=== PATIENT | female | born 1965 | race Caucasian/White ===

== ENCOUNTER 2022-06-30 07:22 | Inpatient (IN) | payer MEDICAID, OTHER ==
[~2022-06-30] VITALS: Ht 170.2 cm; Wt 72.9 kg
[~2022-06-30 07:22] MED LIST: LEVO50TA53; ZOLP10TA
[2022-06-30 08:04] LABS: Basophils # (auto) 0.1 10 ^3/uL (0-0.2); Basophils % (auto) 1.4 % (0.0-2.0); Eosinophils # (auto) 0.1 10 ^3/uL (0-0.8); Eosinophils % (auto) 1.8 % (0.0-7.0); Hematocrit 31.8 % (36.0-46.0); Hemoglobin 10.3 g/dL (12.2-16.2); Lymphocytes # (auto) 1.5 10 ^3/uL (0.4-5.4); Lymphocytes % (auto) 23.3 % (10.0-50.0); Mean Corpuscular Hgb Conc. 32.5 g/dL (32.0-36.0); Mean Corpuscular Volume 92.2 fL (80.0-100.0); Monocytes # (auto) 0.4 10 ^3/uL (0-1.3); Monocytes % (auto) 6.6 % (0.0-12.0); Neutrophils # (auto) 4.3 10 ^3/uL (1.6-8.6); Neutrophils % (auto) 66.9 % (37.0-80.0); Red Blood Cells 3.45 10^6/uL (4.0-5.20); Red Cell Distribution Width 15.7 % (11.8-14.3); White Blood Cell 6.4 10^3/uL (4.4-10.8)
[2022-06-30 08:51] LABS: Alanine Aminotransferase 13 U/L (13-56); Albumin 3.8 g/dL (3.4-5.0); Alkaline Phosphatase 60 U/L (45-117); Anion Gap 7 (5-15); Aspartate Aminotransferase 26 U/L (15-37); Bilirubin, Total 0.5 mg/dL (0.2-1.0); Blood Urea Nitrogen 12 mg/dL (7-18); Calcium 8.6 mg/dL (8.5-10.1); Carbon Dioxide 23 mmol/L (21-32); Chloride 109 mmol/L (98-107); GFR African American 53 mL/min; GFR Non-African American 44 mL/min; Glucose 91 mg/dL (74-106); Potassium 4.2 mmol/L (3.5-5.1); Sodium 139 mmol/L (136-145)
[2022-06-30] MEDS ORDERED: NITROGLYCERIN 0.4 MG SL TAB SL PRN (11:30)
[2022-06-30] MEDS ORDERED: MORPHINE SULFATE INJ 2 MG/ml SYRG IV PRN (11:30)
[2022-06-30] MEDS ORDERED: DOCUSATE SOD 100 MG CAP PO PRN (11:30)
[2022-06-30] MEDS ORDERED: ACETAMINOPHEN 325 MG TAB PO PRN (11:30)
[2022-06-30] MEDS ORDERED: SODIUM CHLORIDE 0.9% 1,000 ML IV ONE (11:30)
[2022-06-30] MEDS ORDERED: GASTROGRAFIN 30 ML SOL ONE (12:13)
[2022-06-30] MEDS: SODIUM CHLOR 0.9% PF (SALINE LOCK) 10ML VIAL/SYR IV SCH ×2 (14:14→21:15)
[2022-06-30] MEDS ORDERED: IOHEXOL 300 MG/ML 100ML BOTTLE IJ ONE ×2 (14:29→14:35)
[2022-06-30] MEDS: HYDROmorphone HCL 2 MG/ML VL/or syr IV PRN (14:33)
[2022-06-30] MEDS: ONDANSETRON HCL 4 MG/2 ML VIAL IV PRN (14:35)
[2022-06-30 17:35] VITALS: BP 79/49
[2022-06-30] MEDS ORDERED: SODIUM CHLORIDE 0.9% 500 ML IV ONE (18:15)
[2022-06-30] MEDS ORDERED: POLYETHYLENE GLYCOL 17 GM PWDR PO ONE (18:15)
[2022-06-30] MEDS ORDERED: ONDANSETRON HCL 4 MG/2 ML VIAL IV ONE (18:15)
[2022-06-30 18:43] VITALS: BP 97/63
[2022-06-30 18:54] VITALS: BP 99/67
[2022-06-30 23:00] VITALS: BP 96/68
[2022-07-01 06:18] VITALS: BP 98/63
[2022-07-01] MEDS: SODIUM CHLOR 0.9% PF (SALINE LOCK) 10ML VIAL/SYR IV SCH ×3 (06:21→22:22)
[2022-07-01 09:00] VITALS: BP 104/58
[2022-07-01] MEDS: SODIUM CHLORIDE 0.9% 1,000 ML IV SCH ×2 (10:43→18:31)
[2022-07-01] MEDS: PANTOPRAZOLE 40 MG/10 ML VIAL INJ IV SCH ×3 (10:47→22:21)
[2022-07-01 11:01] LABS: Basophils # (auto) 0.1 10 ^3/uL (0-0.2); Basophils % (auto) 0.8 % (0.0-2.0); Eosinophils # (auto) 0.1 10 ^3/uL (0-0.8); Eosinophils % (auto) 1.2 % (0.0-7.0); Hemoglobin 9.2 g/dL (12.2-16.2); Lymphocytes # (auto) 1.2 10 ^3/uL (0.4-5.4); Lymphocytes % (auto) 15.7 % (10.0-50.0); Mean Corpuscular Hemoglobin 30.5 pg (28.0-32.0); Mean Corpuscular Hgb Conc. 32.8 g/dL (32.0-36.0); Mean Corpuscular Volume 92.9 fL (80.0-100.0); Monocytes # (auto) 0.4 10 ^3/uL (0-1.3); Monocytes % (auto) 5.7 % (0.0-12.0); Neutrophils # (auto) 5.9 10 ^3/uL (1.6-8.6); Neutrophils % (auto) 76.6 % (37.0-80.0); Red Blood Cells 3.01 10^6/uL (4.0-5.20); Red Cell Distribution Width 15.8 % (11.8-14.3); White Blood Cell 7.7 10^3/uL (4.4-10.8)
[2022-07-01 11:22] LABS: Albumin 3.2 g/dL (3.4-5.0); Calcium 7.7 mg/dL (8.5-10.1); Potassium 3.8 mmol/L (3.5-5.1)
[2022-07-01 11:26] LABS: BUN/Creatinine Ratio 9.3; Bilirubin, Total 0.4 mg/dL (0.2-1.0); Total Protein 6.2 g/dL (6.4-8.2)
[2022-07-01 12:22] LABS: Alcohol, Urine < 3.0 mg/dL (0-10); Amphetamine Screen, Urine NEGATIVE (NEGATIVE); Barbiturate Scree,Urine NEGATIVE (NEGATIVE); Benzodiazephine Screen, Urine NEGATIVE (NEGATIVE); Cannabinoid Screen, Urine NEGATIVE (NEGATIVE); Cocaine Screen, Urine NEGATIVE (NEGATIVE); Opiate Scree,Urine NEGATIVE (NEGATIVE); Phencyclidine Screen, Urine NEGATIVE (NEGATIVE)
[2022-07-01 12:23] LABS: Creatinine, Urine 222 mg/dL (30.0-125.0); Sodium Urine 49 mmol/L (40-220)
[2022-07-01 13:00] VITALS: BP 95/60
[2022-07-01 17:00] VITALS: BP 93/62
[2022-07-01 22:00] VITALS: BP 101/65
[2022-07-01] MEDS ORDERED: PANTOPRAZOLE 40 MG/10 ML VIAL INJ IV SCH (22:00)
[2022-07-02] VITALS (7 sets, daily range): BP systolic 91–115; BP diastolic 59–84
[2022-07-02] MEDS: SODIUM CHLORIDE 0.9% 1,000 ML IV SCH ×4 (04:12→20:03)
[2022-07-02 06:21] LABS: Potassium 3.8 mmol/L (3.5-5.1)
[2022-07-02 06:24] LABS: Basophils # (auto) 0.1 10 ^3/uL (0-0.2); Eosinophils # (auto) 0.1 10 ^3/uL (0-0.8); Hematocrit 27.9 % (36.0-46.0); Hemoglobin 9.3 g/dL (12.2-16.2); Lymphocytes # (auto) 1.2 10 ^3/uL (0.4-5.4); Lymphocytes % (auto) 17.4 % (10.0-50.0); Mean Corpuscular Hemoglobin 30.7 pg (28.0-32.0); Mean Corpuscular Hgb Conc. 33.2 g/dL (32.0-36.0); Mean Corpuscular Volume 92.6 fL (80.0-100.0); Monocytes # (auto) 0.4 10 ^3/uL (0-1.3); Monocytes % (auto) 6.2 % (0.0-12.0); Neutrophils # (auto) 5.2 10 ^3/uL (1.6-8.6); Neutrophils % (auto) 73.4 % (37.0-80.0); Red Blood Cells 3.01 10^6/uL (4.0-5.20); Red Cell Distribution Width 15.8 % (11.8-14.3); White Blood Cell 7.1 10^3/uL (4.4-10.8)
[2022-07-02 06:32] LABS: Albumin 3.2 g/dL (3.4-5.0); BUN/Creatinine Ratio 8.6; Bilirubin, Total 0.4 mg/dL (0.2-1.0); Calcium 7.4 mg/dL (8.5-10.1); Total Protein 6.2 g/dL (6.4-8.2)
[2022-07-02] MEDS: SODIUM CHLOR 0.9% PF (SALINE LOCK) 10ML VIAL/SYR IV SCH ×3 (06:45→22:33)
[2022-07-02] MEDS: PANTOPRAZOLE 40 MG/10 ML VIAL INJ IV SCH ×4 (10:00→22:32)
[2022-07-02 11:59] LABS: INR 1.18 (0.9-1.15)
[2022-07-02] MEDS: ONDANSETRON HCL 4 MG/2 ML VIAL IV PRN (12:50)
[2022-07-02] MEDS: HYDROmorphone HCL 2 MG/ML VL/or syr IV PRN ×2 (12:51→19:49)
[2022-07-03] VITALS (27 sets, daily range): BP systolic 87–119; BP diastolic 53–86
[2022-07-03 01:31] LABS: INR 1.28 (0.9-1.15); Partial Thromboplastin Time 39.6 sec (24.6-33.4)
[2022-07-03] MEDS: SODIUM CHLORIDE 0.9% 1,000 ML IV SCH ×3 (03:19→22:43)
[2022-07-03] MEDS: HYDROmorphone HCL 2 MG/ML VL/or syr IV PRN ×2 (04:22→09:24)
[2022-07-03] MEDS: SODIUM CHLOR 0.9% PF (SALINE LOCK) 10ML VIAL/SYR IV SCH ×3 (06:00→22:43)
[2022-07-03 06:15] LABS: Basophils # (auto) 0.1 10 ^3/uL (0-0.2); Basophils % (auto) 0.9 % (0.0-2.0); Eosinophils # (auto) 0.1 10 ^3/uL (0-0.8); Eosinophils % (auto) 1.8 % (0.0-7.0); Hematocrit 29.1 % (36.0-46.0); Hemoglobin 9.6 g/dL (12.2-16.2); Lymphocytes % (auto) 16.5 % (10.0-50.0); Mean Corpuscular Hemoglobin 30.8 pg (28.0-32.0); Mean Corpuscular Volume 93.4 fL (80.0-100.0); Monocytes # (auto) 0.5 10 ^3/uL (0-1.3); Monocytes % (auto) 7.5 % (0.0-12.0); Neutrophils # (auto) 4.5 10 ^3/uL (1.6-8.6); Neutrophils % (auto) 73.3 % (37.0-80.0); Red Blood Cells 3.11 10^6/uL (4.0-5.20); Red Cell Distribution Width 16.3 % (11.8-14.3); White Blood Cell 6.2 10^3/uL (4.4-10.8)
[2022-07-03 07:48] LABS: Blood Urea Nitrogen 9 mg/dL (7-18); Glucose 75 mg/dL (74-106)
[2022-07-03 07:49] LABS: Alanine Aminotransferase 10 U/L (13-56); Alkaline Phosphatase 57 U/L (45-117); Aspartate Aminotransferase 24 U/L (15-37); BUN/Creatinine Ratio 7.4; GFR African American 59 mL/min; GFR Non-African American 49 mL/min
[2022-07-03 07:50] LABS: Bilirubin, Total 0.5 mg/dL (0.2-1.0); Calcium 7.7 mg/dL (8.5-10.1)
[2022-07-03 07:51] LABS: Albumin 3.4 g/dL (3.4-5.0); Total Protein 6.6 g/dL (6.4-8.2)
[2022-07-03 08:47] LABS: Carbon Dioxide 20 mmol/L (21-32)
[2022-07-03 08:49] LABS: Anion Gap 8 (5-15); Chloride 113 mmol/L (98-107); Sodium 141 mmol/L (136-145)
[2022-07-03] MEDS: PANTOPRAZOLE 40 MG/10 ML VIAL INJ IV SCH ×4 (09:26→22:43)
[2022-07-03] MEDS ORDERED: ALBUMIN 25% 100 ML IV ONE (11:00)
[2022-07-03 11:18] LABS: Hepatitis B Surface Antibody Negative (Negative)
[2022-07-03 11:52] LABS: Hepatitis A Total Antibody Negative (Negative)
[2022-07-03 13:00] LABS: Hepatitis C Antibody Negative (Negative)
[2022-07-03] MEDS: LEVOTHYROXINE SODIUM 100 MCG/5 ML INJ IV SCH (13:26)
[2022-07-03 13:37] LABS: Hepatitis A Ab IgM Negative; Hepatitis B Core IgM Negative
[2022-07-03 13:39] LABS: Hepatitis C Antibody Negative (Negative)
[2022-07-04] VITALS (11 sets, daily range): BP systolic 82–155; BP diastolic 53–77
[2022-07-04] MEDS: SODIUM CHLORIDE 0.9% 1,000 ML IV SCH ×4 (04:54→20:00)
[2022-07-04 05:22] LABS: Basophils # (auto) 0.1 10 ^3/uL (0-0.2); Basophils % (auto) 0.8 % (0.0-2.0); Eosinophils # (auto) 0.1 10 ^3/uL (0-0.8); Hematocrit 28.1 % (36.0-46.0); Hemoglobin 9.4 g/dL (12.2-16.2); Lymphocytes # (auto) 1.3 10 ^3/uL (0.4-5.4); Lymphocytes % (auto) 20.3 % (10.0-50.0); Mean Corpuscular Hemoglobin 31.1 pg (28.0-32.0); Mean Corpuscular Hgb Conc. 33.6 g/dL (32.0-36.0); Mean Corpuscular Volume 92.5 fL (80.0-100.0); Monocytes # (auto) 0.5 10 ^3/uL (0-1.3); Monocytes % (auto) 8.4 % (0.0-12.0); Neutrophils # (auto) 4.4 10 ^3/uL (1.6-8.6); Neutrophils % (auto) 68.5 % (37.0-80.0); Red Blood Cells 3.04 10^6/uL (4.0-5.20); Red Cell Distribution Width 15.9 % (11.8-14.3); White Blood Cell 6.4 10^3/uL (4.4-10.8)
[2022-07-04 05:39] LABS: Albumin 2.6 g/dL (3.4-5.0); Calcium 7.1 mg/dL (8.5-10.1); Potassium 3.8 mmol/L (3.5-5.1)
[2022-07-04 05:42] LABS: BUN/Creatinine Ratio 7.5
[2022-07-04 05:44] LABS: Bilirubin, Total 0.2 mg/dL (0.2-1.0)
[2022-07-04] MEDS: SODIUM CHLOR 0.9% PF (SALINE LOCK) 10ML VIAL/SYR IV SCH ×3 (06:01→22:00)
[2022-07-04 07:43] LABS: Urine Bacteria NONE SEEN /hpf (None Seen); Urine Blood Negative /uL (Negative); Urine Mucus FEW (None Seen); Urine Specific Gravity 1.018 (1.001-1.035); Urine WBC 2 /hpf (0 - 5)
[2022-07-04] MEDS ORDERED: ANGIOMAX 250 MG VIAL IV ONE (09:27)
[2022-07-04] MEDS ORDERED: IOHEXOL 350 MG/ML 100ML IJ ONE (09:28)
[2022-07-04] MEDS ORDERED: MIDAZOLAM HCL 2MG/2ML 2ml VIAL (1mg/ml) ONE (09:28)
[2022-07-04] MEDS ORDERED: SODIUM CHL 0.9% 0 ML ONE (09:28)
[2022-07-04] MEDS ORDERED: LIDOCAINE 2%HCL (LOCAL ANESTH.) INJ 10ml MDV ONE (09:28)
[2022-07-04] MEDS ORDERED: fentaNYL CITRATE 100 MCG/2 ML VL ONE (09:28)
[2022-07-04] MEDS: PANTOPRAZOLE 40 MG/10 ML VIAL INJ IV SCH ×4 (11:07→21:27)
[2022-07-04] MEDS: LEVOTHYROXINE SODIUM 100 MCG/5 ML INJ IV SCH (11:32)
[2022-07-04] MEDS: HYDROcodone-ACET 5/325MG TAB PO PRN ×2 (13:11→18:21)
[2022-07-05] MEDS: SODIUM CHLORIDE 0.9% 1,000 ML IV SCH ×2 (04:46→18:13)
[2022-07-05 05:00] VITALS: BP 98/63
[2022-07-05] MEDS: SODIUM CHLOR 0.9% PF (SALINE LOCK) 10ML VIAL/SYR IV SCH ×3 (06:00→22:17)
[2022-07-05] MEDS: HYDROcodone-ACET 5/325MG TAB PO PRN ×3 (08:24→18:37)
[2022-07-05 09:12] VITALS: BP 98/74
[2022-07-05] MEDS: LEVOTHYROXINE SODIUM 100 MCG/5 ML INJ IV SCH (10:02)
[2022-07-05] MEDS: ALBUMIN 25% 100 ML IV SCH ×2 (11:19→17:41)
[2022-07-05 13:00] VITALS: BP 85/61
[2022-07-05] MEDS ORDERED: ALBUMIN 25% 100 ML IV ONE (15:45)
[2022-07-05 17:00] VITALS: BP 135/59
[2022-07-05] MEDS ORDERED: LOSARTAN POTASSIUM 25 MG TAB PO ONE (20:00)
[2022-07-05 22:00] VITALS: BP 89/53
[2022-07-06] MEDS: ALBUMIN 25% 100 ML IV SCH ×3 (01:17→14:03)
[2022-07-06 05:00] VITALS: BP 92/65
[2022-07-06] MEDS: SODIUM CHLOR 0.9% PF (SALINE LOCK) 10ML VIAL/SYR IV SCH ×3 (06:05→22:55)
[2022-07-06] MEDS: LEVOTHYROXINE SODIUM 100 MCG TAB PO SCH (06:39)
[2022-07-06 08:00] VITALS: BP 95/66
[2022-07-06] MEDS: HYDROcodone-ACET 5/325MG TAB PO PRN ×3 (08:08→20:02)
[2022-07-06 08:24] VITALS: BP 95/66
[2022-07-06] MEDS ORDERED: METOPROLOL SUCCINATE XL 50 MG TAB PO SCH (10:00)
[2022-07-06] MEDS ORDERED: LOSARTAN POTASSIUM 25 MG TAB PO SCH (10:00)
[2022-07-06 11:33] VITALS: BP 84/54
[2022-07-06 12:28] LABS: Free T3 0.65 pg/mL (2.3-4.2); Free T4 (Free Thyroxine) 0.36 ng/dL (0.89-1.76); T3 Total 0.15 ng/mL (0.60-1.81)
[2022-07-06 16:57] VITALS: BP 85/49
[2022-07-06] MEDS: FUROSEMIDE 20 MG/2 ML VIAL IV SCH (18:00)
[2022-07-06 22:00] VITALS: BP 90/52
[2022-07-07] VITALS (7 sets, daily range): BP systolic 89–144; BP diastolic 52–66
[2022-07-07] MEDS: FUROSEMIDE 20 MG/2 ML VIAL IV SCH ×2 (06:00→17:07)
[2022-07-07] MEDS: SODIUM CHLOR 0.9% PF (SALINE LOCK) 10ML VIAL/SYR IV SCH ×3 (06:57→22:02)
[2022-07-07] MEDS: LEVOTHYROXINE SODIUM 100 MCG TAB PO SCH (06:57)
[2022-07-07] MEDS: HYDROcodone-ACET 5/325MG TAB PO PRN ×3 (09:26→18:41)
[2022-07-07] MEDS: LEVOTHYROXINE SODIUM 100 MCG/5 ML INJ IV SCH (13:52)
[2022-07-07] MEDS: SPIRONOLACTONE 25 MG TAB PO SCH (17:07)
[2022-07-07] MEDS: SACUBITRIL-VALSARTAN 24mg/26mg TAB PO SCH (22:03)
[2022-07-07] MEDS: CARVEDILOL 12.5 MG TAB PO SCH (22:03)
[2022-07-08] VITALS (7 sets, daily range): BP systolic 80–92; BP diastolic 47–66
[2022-07-08] MEDS: FUROSEMIDE 20 MG/2 ML VIAL IV SCH ×2 (06:00→16:41)
[2022-07-08] MEDS: SPIRONOLACTONE 25 MG TAB PO SCH ×2 (06:02→17:32)
[2022-07-08] MEDS: SODIUM CHLOR 0.9% PF (SALINE LOCK) 10ML VIAL/SYR IV SCH ×3 (06:02→22:24)
[2022-07-08] MEDS: LEVOTHYROXINE SODIUM 100 MCG TAB PO SCH (07:08)
[2022-07-08] MEDS: LEVOTHYROXINE SODIUM 100 MCG/5 ML INJ IV SCH (09:54)
[2022-07-08] MEDS: CARVEDILOL 12.5 MG TAB PO SCH ×2 (09:55→22:00)
[2022-07-08] MEDS: SACUBITRIL-VALSARTAN 24mg/26mg TAB PO SCH ×2 (09:55→22:00)
[2022-07-08] MEDS: LISINOPRIL 20 MG TAB PO SCH (09:56)
[2022-07-09] VITALS (8 sets, daily range): BP systolic 83–95; BP diastolic 47–58
[2022-07-09] MEDS: ALBUMIN 25% 100 ML IV SCH ×2 (00:05→01:16)
[2022-07-09] MEDS: FUROSEMIDE 20 MG/2 ML VIAL IV SCH ×2 (06:00→18:00)
[2022-07-09] MEDS: SPIRONOLACTONE 25 MG TAB PO SCH ×2 (06:00→18:00)
[2022-07-09 06:12] LABS: Basophils # (auto) 0.1 10 ^3/uL (0-0.2); Eosinophils # (auto) 0.2 10 ^3/uL (0-0.8); Lymphocytes # (auto) 1.5 10 ^3/uL (0.4-5.4); White Blood Cell 6.6 10^3/uL (4.4-10.8)
[2022-07-09 06:16] LABS: Basophils % (auto) 0.9 % (0.0-2.0); Hematocrit 24.4 % (36.0-46.0); Hemoglobin 8.2 g/dL (12.2-16.2); Lymphocytes % (auto) 22.9 % (10.0-50.0); Mean Corpuscular Hemoglobin 30.3 pg (28.0-32.0); Mean Corpuscular Hgb Conc. 33.5 g/dL (32.0-36.0); Mean Corpuscular Volume 90.5 fL (80.0-100.0); Monocytes # (auto) 0.4 10 ^3/uL (0-1.3); Monocytes % (auto) 6.8 % (0.0-12.0); Neutrophils # (auto) 4.4 10 ^3/uL (1.6-8.6); Neutrophils % (auto) 66.4 % (37.0-80.0)
[2022-07-09] MEDS: SODIUM CHLOR 0.9% PF (SALINE LOCK) 10ML VIAL/SYR IV SCH ×3 (06:16→21:43)
[2022-07-09 06:23] LABS: Albumin 3.5 g/dL (3.4-5.0); Calcium 8.4 mg/dL (8.5-10.1); Potassium 4.6 mmol/L (3.5-5.1)
[2022-07-09] MEDS: LEVOTHYROXINE SODIUM 100 MCG TAB PO SCH (06:26)
[2022-07-09 06:27] LABS: BUN/Creatinine Ratio 18.5; Bilirubin, Total 0.4 mg/dL (0.2-1.0); Total Protein 5.5 g/dL (6.4-8.2)
[2022-07-09] MEDS: LISINOPRIL 20 MG TAB PO SCH (10:00)
[2022-07-09] MEDS: CARVEDILOL 12.5 MG TAB PO SCH ×2 (10:00→22:30)
[2022-07-09] MEDS: SACUBITRIL-VALSARTAN 24mg/26mg TAB PO SCH ×2 (10:00→22:00)
[2022-07-09] MEDS: LEVOTHYROXINE SODIUM 100 MCG/5 ML INJ IV SCH (10:21)
[2022-07-10 05:00] VITALS: BP 83/46
[2022-07-10] MEDS: SPIRONOLACTONE 25 MG TAB PO SCH (06:30)
[2022-07-10] MEDS: FUROSEMIDE 20 MG/2 ML VIAL IV SCH (06:30)
[2022-07-10] MEDS: LEVOTHYROXINE SODIUM 100 MCG TAB PO SCH (06:31)
[2022-07-10] MEDS: SODIUM CHLOR 0.9% PF (SALINE LOCK) 10ML VIAL/SYR IV SCH (06:31)
[2022-07-10 09:00] VITALS: BP 86/55
[2022-07-10] MEDS: LISINOPRIL 20 MG TAB PO SCH (10:00)
[2022-07-10] MEDS ORDERED: LEVO200T PO (10:36)
[2022-07-10] MEDS ORDERED: SACU1TAB PO (10:36)
[2022-07-10] MEDS ORDERED: SPIR25TA PO (10:36)
[2022-07-10] MEDS ORDERED: CAR125T PO (10:36)
[2022-07-10] MEDS: LEVOTHYROXINE SODIUM 100 MCG/5 ML INJ IV SCH (10:36)
[2022-07-10] MEDS: CARVEDILOL 12.5 MG TAB PO SCH (10:36)
[2022-07-10] MEDS: SACUBITRIL-VALSARTAN 24mg/26mg TAB PO SCH (10:36)
[2022-07-10] MEDS ORDERED: FURO1TAB33 PO (10:37)
[2022-07-10] MEDS ORDERED: SODIUM CHLORIDE 0.9% 1,000 ML IV ONE (12:00)
[2022-07-10 13:00] VITALS: BP 70/44
[2022-07-10 15:36] VITALS: BP 86/55
== END 2022-07-10 16:04 | disposition home or self-care (01) | DRG 191 ==
LOC: ER 07:22 → TELE 11:22 → TELE-WESTW 17:22
PROVIDERS: ADMIT Internal Medicine; ATTEND Family Medicine
PROC: 0W9G3ZZ Drainage of Peritoneal Cavity, Percutaneous Approach (ICD-10-PCS; principal; 2022-07-03)
PROC: B2111ZZ Fluoroscopy of Multiple Coronary Arteries using Low Osmolar Contrast (ICD-10-PCS; 2022-07-04)
PROC: B2151ZZ Fluoroscopy of Left Heart using Low Osmolar Contrast (ICD-10-PCS; 2022-07-04)
PROC: B41J1ZZ Fluoroscopy of Other Lower Arteries using Low Osmolar Contrast (ICD-10-PCS; 2022-07-04)
PROC: 0W9G3ZZ Drainage of Peritoneal Cavity, Percutaneous Approach (ICD-10-PCS; 2022-07-05)
PROC: 0W9G3ZZ Drainage of Peritoneal Cavity, Percutaneous Approach (ICD-10-PCS; 2022-07-06)
DX: I24.9 Acute ischemic heart disease, unspecified (principal); I50.23 Acute on chronic systolic (congestive) heart failure; N17.9 Acute kidney failure, unspecified; I31.3 Pericardial effusion (noninflammatory); E44.0 Moderate protein-calorie malnutrition; I42.0 Dilated cardiomyopathy; R18.8 Other ascites; I95.9 Hypotension, unspecified; I25.10 Atherosclerotic heart disease of native coronary artery without angina pectoris; K76.0 Fatty (change of) liver, not elsewhere classified; R14.0 Abdominal distension (gaseous); E03.9 Hypothyroidism, unspecified; Z20.822 Contact with and (suspected) exposure to COVID-19; F17.200 Nicotine dependence, unspecified, uncomplicated; Z82.5 Family history of asthma and other chronic lower respiratory diseases; Z82.49 Family history of ischemic heart disease and other diseases of the circulatory system; Z91.14 Patient's other noncompliance with medication regimen; N18.30 Chronic kidney disease, stage 3 unspecified
CPT/HCPCS: 36415; 71045; 74177; 76705; 76856; 76942; 80053; 80074; 80307; 81001; 82150; 82164; 82570; 82728; 83880; 84300; 84439; 84443; 84480; 84481; 84484; 84550; 84702; 85025; 85610; 85652; 85730; 86141; 86160; 86644; 86645; 86658; 86664; 86704; 86706; 86708; 86803; 87205; 87340; 89051; 89060; 93005; 93306; 96361; 96374; 99152; C9113; G0378; J2001; J2250; J2405; J3490; P9047

== ENCOUNTER 2022-12-24 13:13 | Emergency (ER) | payer MEDICAID ==
[~2022-12-24] VITALS: Ht 170.2 cm; Wt 73.6 kg
[~2022-12-24 13:13] MED LIST changes: +CAR125T PO; +FURO1TAB33 PO; +LEVO200T PO; -LEVO50TA53; +SACU1TAB PO; +SPIR25TA PO; -ZOLP10TA
[2022-12-24 13:29] VITALS: BP 104/82
[2022-12-24] MEDS ORDERED: ASPirin 325 MG TAB PO ONE (13:30)
[2022-12-24 13:49] LABS: Basophils # (auto) 0.1 10 ^3/uL (0-0.2); Basophils % (auto) 1.5 % (0.0-2.0); Eosinophils # (auto) 0.4 10 ^3/uL (0-0.8); Eosinophils % (auto) 4.8 % (0.0-7.0); Hematocrit 35.7 % (36.0-46.0); Hemoglobin 12.2 g/dL (12.2-16.2); Lymphocytes # (auto) 2.2 10 ^3/uL (0.4-5.4); Lymphocytes % (auto) 28.1 % (10.0-50.0); Mean Corpuscular Hemoglobin 29.9 pg (28.0-32.0); Mean Corpuscular Volume 87.7 fL (80.0-100.0); Monocytes # (auto) 0.7 10 ^3/uL (0-1.3); Monocytes % (auto) 9.4 % (0.0-12.0); Neutrophils # (auto) 4.4 10 ^3/uL (1.6-8.6); Neutrophils % (auto) 56.2 % (37.0-80.0); Nucleated Red Blood Cells % 0.1 %; Red Blood Cells 4.07 10^6/uL (4.0-5.20); Red Cell Distribution Width 16.5 % (11.8-14.3); White Blood Cell 7.8 10^3/uL (4.4-10.8)
[2022-12-24 14:06] LABS: Albumin 3.1 g/dL (3.4-5.0); Potassium 4.1 mmol/L (3.5-5.1)
[2022-12-24 14:07] LABS: INR 0.97 (0.9-1.15); Partial Thromboplastin Time 28.5 sec (24.6-33.4)
[2022-12-24 14:08] LABS: Bilirubin, Total 0.2 mg/dL (0.2-1.0); Total Protein 6.7 g/dL (6.4-8.2)
[2022-12-24 16:37] LABS: Urine Bacteria NONE SEEN /hpf (None Seen); Urine Blood Negative /uL (Negative); Urine Mucus FEW (None Seen); Urine Specific Gravity 1.024 (1.001-1.035); Urine WBC 4 /hpf (0 - 5)
== END 2022-12-25 02:16 | disposition left against medical advice (07) ==
LOC: EDBD 13:13 → ER 13:13
DX: R07.89 Other chest pain (principal); I11.0 Hypertensive heart disease with heart failure; F17.210 Nicotine dependence, cigarettes, uncomplicated; Z90.49 Acquired absence of other specified parts of digestive tract; Z98.51 Tubal ligation status; Z79.899 Other long term (current) drug therapy
CPT/HCPCS: 36415; 71045; 80053; 81001; 84484; 85025; 85379; 85610; 85730; 93005